=== PATIENT | female | born 1940 | race Caucasian/White ===

== ENCOUNTER 2021-05-11 08:18 | Outpatient (REF) | payer MEDICARE, SELFPAY ==
--- NOTE | ~2021-05-11 | MM_ITS ---
EXAMINATION: MM SCREENING DIGITAL BREAST TOMOSYNTHESIS, BILATERAL CLINICAL INFORMATION: Screening. Asymptomatic. The lifetime risk of breast cancer based on the Tyrer-Cuzick Model is 1%. COMPARISON: Mammography: 10/23/2019, 08/25/2018, 08/08/2017 TECHNIQUE: Digital breast tomosynthesis is performed in both the craniocaudal and mediolateral oblique views along with computer-aided detection (CAD). Synthesized 2D images are generated from the tomosynthesis. FINDINGS: There are scattered areas of fibroglandular density (ACR BI-RADS breast composition Category b). There are no significant masses, abnormal calcifications, or other abnormalities. Dermal lesion again noted overlying posterior medial right breast. There are scattered benign round and vascular calcifications again seen. No significant changes. MM/MM tomosynthesis screening BI IMPRESSION: No mammographic evidence of malignancy. ASSESSMENT: BI-RADS 2: Benign RECOMMENDATION: Routine annual mammography screening. This patient's information was entered into a reminder system with a target due date for their next mammogram.
== END 2021-05-11 08:19 | disposition home or self-care (01) ==
LOC: HO.MAMMO 08:18
PROVIDERS: PCP Internal Medicine; Visit Provider Internal Medicine
DX: Z12.31 Encounter for screening mammogram for malignant neoplasm of breast (principal)
CPT/HCPCS: 77063; 77067

== ENCOUNTER 2022-06-11 09:06 | Outpatient (REF) | payer MEDICARE, SELFPAY ==
--- NOTE | ~2022-06-11 | MM_ITS ---
EXAMINATION: MM SCREENING DIGITAL BREAST TOMOSYNTHESIS, BILATERAL CLINICAL INFORMATION: Screening. Asymptomatic. The lifetime risk of breast cancer based on the Tyrer-Cuzick Model is 0.7%. COMPARISON: Mammography: May 11, 2021 and studies dating back to June 26, 2014 TECHNIQUE: Digital breast tomosynthesis is performed in both the craniocaudal and mediolateral oblique views along with computer-aided detection (CAD). Synthesized 2D images are generated from the tomosynthesis. FINDINGS: There are scattered areas of fibroglandular density (ACR BI-RADS breast composition Category b). There are no significant masses, abnormal calcifications, or other abnormalities. MM/MM tomosynthesis screening BI IMPRESSION: No significant changes from prior exam. ASSESSMENT: BI-RADS 1: Negative RECOMMENDATION: Routine annual mammography screening. This patient's information was entered into a reminder system with a target due date for their next mammogram.
== END 2022-06-11 09:07 | disposition home or self-care (01) ==
LOC: HO.MAMMO 09:06
PROVIDERS: Visit Provider Internal Medicine
DX: Z12.31 Encounter for screening mammogram for malignant neoplasm of breast (principal)
CPT/HCPCS: 77063; 77067

== ENCOUNTER 2022-12-16 08:01 | Outpatient (AMB) | payer MEDICARE, SELFPAY ==
[2022-12-16 08:08] VITALS: BP 152/80; PULSE 79; O2SAT 98; BMI 26.3
--- NOTE | 2022-12-16 08:08 | MHC.PC.OV ---
Vital Signs 12/16/22 08:08 12/16/22 08:26 Height 4 ft 10 in Weight 126 lb BMI 26.3 BP 152/80 H 133/80 Blood Pressure Location Lt brachial Lt brachial Position Sitting Sitting Pulse 79 Pulse Source Pulse Oximeter Pulse Oximetry (%) 98 Oxygen Delivery Method Room Air Intake Visit Reasons: bp Fine Wire Drawer Required: No Accompanied by: Self / Same As Patient Allergies pravastatin Adverse Reaction (Intermediate, Verified 12/16/22 08:16) ineffective Medication List - Last Reconciled 12/16/22 by Mansi Luis MD aspirin 81 mg PO DAILY atorvastatin 20 mg PO DAILY 90 days lisinopril 20 mg PO DAILY 90 days multivitamin 1 tab PO DAILY Tobacco use date assessed: 08/16/22 Fall risk assessment: No Falls in past year Last assessed Fall Risk: 12/16/22 Dental Screening Dental Screen Date: 12/16/22 Did you have a dental visit in the last 12 months?: No Did you have a dental problem in the last 6 months where you did not have access to dental care?: No Was dental information given to patient?: No HPI HPI Comments History of Present Illness Details This is an 82-year-old female with hypertension and pure hypercholesterolemia that comes for follow-up on her blood pressure and lipids. Blood pressure at home is less than 140/90. Last labs were discussed and cholesterol is well control. Will have bone density ordered. No chest pain or shortness of breath. FORMERLY [facility], [facility]–1983 Medical History Essential hypertension Overweight (BMI 25.0-29.9) Pure hypercholesterolemia URI (upper respiratory infection) Surgical History History of colonoscopy No pertinent past surgical history Family History Father Hypertension Mother Hypertension CHF (congestive heart failure) Stroke Brother COPD (chronic obstructive pulmonary disease) Sister Aneurysm Social History Housing: House Alcohol intake: never Patient Tobacco Use Status: Former Tobacco user Tobacco use type: Cigarette e-Cigarette/Vaping Use: Never Used Second Hand Smoke Exposure: No service: No Current occupational status: disabled Cognitive needs: No Hearing needs: No Vision needs: No Questionnaire PHQ-9 Over the last 2 weeks, how often have you been bothered by any of the following problems? 1. Little interest or pleasure in doing things: not at all 2. Feeling down, depressed, or hopeless: not at all 3. Trouble falling or staying asleep, or sleeping too much: not at all 4. Feeling tired or having little energy: not at all 5. Poor appetite or overeating: not at all 6. Feeling bad about yourself - or that you are a failure or have let yourself or your family down: not at all 7. Trouble concentrating on things, such as reading the newspaper or watching television: not at all 8. Moving or speaking so slowly that other people could have noticed. Or the opposite - being so fidgety or restless that you have been moving around a lot more than usual: not at all 9. Thoughts that you would be better off or of hurting yourself in some way: not at all Total score: 0 Depression Screening Interpretation: Negative 61702 - PHQ-9 Billing: Yes Source: Developed by Drs. Angel Almodovar, Veronica Severino, Melvin Trevino and colleagues, with an educational janusz from [employer]. Thrive Questionnaire Date Thrive assessed: 08/16/22 AUDIT C Alcohol Use Questionnaire (AUDIT-C) 1. How often do you have a drink containing alcohol?: Never Total Score: 0 ANNEL-7 AMB Questionnaire ANNEL-7 Date ANNEL - 7 assessed: 08/16/22 Source: Developed by Drs. Angel Almodovar, Veronica Severino, Melvin Trevino and colleagues, with an educational janusz from [employer]. Review of Systems Const All systems reviewed & are unremarkable except as noted in HPI and below Eyes Reports no additional complaints, Denies change in vision and Denies other visual disturbances Card Denies chest pain at rest, Denies chest pain with activity, Denies edema, Denies irregular heart rhythm, Denies claudication, Denies dyspnea, Denies dyspnea on exertion, Denies orthopnea, Denies paroxysmal nocturnal dyspnea and Denies slow heart rate Resp Denies cough, Denies dyspnea and Denies dyspnea on exertion GI Denies abdominal pain, Denies change in bowel habits, Denies excessive flatus, Denies nausea and Denies vomiting Denies urinary incontinence, Denies urinary hesitancy and Denies urinary urgency Musc Denies abnormal gait, Denies atrophy, Denies deformity and Denies limited range of motion Skin/Breast Denies bleeding lesions, Denies changing lesions and Denies rash Neuro Denies abnormal gait and Denies lack of coordination Physical exam (Primary Care) Vital Signs: Last Vital Signs Pulse 79 12/16/22 08:08 BP 152/80 H 12/16/22 08:08 Pulse Ox 98 12/16/22 08:08 Oxygen Delivery Method Room Air 12/16/22 08:08 BMI result Body Mass Index 26.3 Tobacco/Smoking Status: Tobacco use Status Tobacco use date assessed 08/16/22 12/16/22 08:13 Patient Tobacco Use Status Former Tobacco user 12/16/22 08:13 Tobacco use type Cigarette 12/16/22 08:13 e-Cigarette/Vaping Use Never Used 12/16/22 08:13 PHQ-9: PHQ-9 Score PHQ-9: Total score 0 12/16/22 08:13 Depression Screening Interpretation: Negative Thrive Assessment: Date of Thrive Assessment Date Thrive assessed 08/16/22 12/16/22 08:13 Eyes General: appearance normal, both eyes and all related structures Eyelids: Yes eyelids normal Conjunctivae: conjunctivae normal Neck Neck: Yes normal visual inspection and Yes supple Resp Effort & Inspection: normal respiratory effort Auscultation: clear to auscultation bilaterally Cardio Jugular venous distension: no JVD Rate: regular rate Rhythm: regular rhythm Heart sounds: S1 normal heart sound present and S2 normal heart sound present Extrem General: Yes full ROM Assessment and Plan Assessment & Plan (1) Essential hypertension: Code(s): I10 - Essential (primary) hypertension Plan: Continue lisinopril. Blood pressure goal is equal or less than 130/80. (2) Pure hypercholesterolemia: Code(s): E78.00 - Pure hypercholesterolemia, unspecified Plan: Continue statins Orders: Orders XR DEXA axial skeleton Today N95.9 - Unspecified menopausal and perimenopausal disorder Coding Level of Care Code Est Pt Level 3 (96402) Diagnoses Essential hypertension I10 Pure hypercholesterolemia E78.00 Time Spent (min) 16
[2022-12-16 08:26] VITALS: BP 133/80
== END 2022-12-16 08:24 | disposition home or self-care (01) ==
PROVIDERS: Visit Provider Internal Medicine
DX: I10 Essential (primary) hypertension (principal); E78.00 Pure hypercholesterolemia, unspecified
CPT/HCPCS: 99213

== ENCOUNTER 2023-06-23 08:08 | Outpatient (AMB) | payer MEDICARE, SELFPAY ==
[2023-06-23 08:16] VITALS: BP 136/64; BMI 24.5
--- NOTE | 2023-06-23 08:16 | A.OFFPC_ITS ---
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 Accompanied by: Self / Same As Patient Allergies pravastatin Adverse Reaction (Intermediate, Verified 06/23/23 08:24) ineffective Medication List - Last Reconciled 06/23/23 by Mansi Luis MD aspirin 81 mg PO DAILY atorvastatin 20 mg PO DAILY 90 days lisinopril 20 mg PO DAILY 90 days multivitamin 1 tab PO DAILY Tobacco use date assessed: 06/23/23 Fall risk assessment: No Falls in past year Last assessed Fall Risk: 06/23/23 Dental Screening Dental Screen Date: 06/23/23 Did you have a dental visit in the last 12 months?: No Did you have a dental problem in the last 6 months where you did not have access to dental care?: No Was dental information given to patient?: Patient has dentist HPI HPI Comments History of Present Illness Details This is an 82-year-old female with hypertension and pure hypercholesterolemia that comes today for follow-up on blood pressure. Blood pressure has been within goal. Last cholesterol was well controlled with statins and reports no side effects. Has a systolic murmur but denies any chest pain, shortness on breath or leg swelling. Has not gain 5 lb in a week. Will order echocardiogram and labs for the next office visit. [facility] Medical History (Updated 06/23/23 @ 09:14 by Mansi Luis MD) Overweight (BMI 25.0-29.9) URI (upper respiratory infection) Pure hypercholesterolemia Essential hypertension Surgical History History of colonoscopy No pertinent past surgical history Family History Father Hypertension Mother Hypertension CHF (congestive heart failure) Stroke Brother COPD (chronic obstructive pulmonary disease) Sister Aneurysm Social History Housing: House Alcohol intake: never Patient Tobacco Use Status: Former Tobacco user Tobacco use type: Cigarette e-Cigarette/Vaping Use: Never Used Second Hand Smoke Exposure: No service: No Current occupational status: disabled Cognitive needs: No Hearing needs: No Vision needs: No Questionnaire PHQ-9 Over the last 2 weeks, how often have you been bothered by any of the following problems? 1. Little interest or pleasure in doing things: not at all 2. Feeling down, depressed, or hopeless: not at all 3. Trouble falling or staying asleep, or sleeping too much: not at all 4. Feeling tired or having little energy: not at all 5. Poor appetite or overeating: not at all 6. Feeling bad about yourself - or that you are a failure or have let yourself or your family down: not at all 7. Trouble concentrating on things, such as reading the newspaper or watching television: not at all 8. Moving or speaking so slowly that other people could have noticed. Or the opposite - being so fidgety or restless that you have been moving around a lot more than usual: not at all 9. Thoughts that you would be better off or of hurting yourself in some way: not at all Total score: 0 Depression Screening Interpretation: Negative Depression Screening Done: Yes 89636 - PHQ-9 Billing: Yes Source: Developed by Drs. Angel Almodovar, Veronica Severino, Melvin Trevino and colleagues, with an educational janusz from [employer]. Thrive Questionnaire Date Thrive assessed: 06/23/23 I am a: Patient What is your living situation today?: I have a steady place to live Within the past 12 months, did the food you bought not last and you didn't have the money to get more?: Never true Within the past 12 months, did you worry whether your food would run out before you got money to buy more?: Never true Do you have trouble paying for medicines?: No Do you have trouble getting transportation to medical appointments?: No Do you have trouble paying your heating and electricity bill?: No Do you have trouble taking care of your child, family member or friend?: No Do you have trouble with day-to-day activities such as bathing, preparing meals, shopping, managing finances, etc.?: No Are you currently unemployed and looking for a job?: No Are you interested in more education?: No Please select the resources that you would like help with: None Currently or been in a relationship where the following occur: no concerns reported THRIVE Score: 0 AUDIT C Alcohol Use Questionnaire (AUDIT-C) 1. How often do you have a drink containing alcohol?: Never Total Score: 0 ANNEL-7 AMB Questionnaire ANNEL-7 Date ANNEL - 7 assessed: 06/23/23 Feeling nervous, anxious, or on edge: 0 = Not at all Not being able to stop or control worryin = Not at all Worrying too much about different things: 0 = Not at all Trouble relaxin = Not at all Being so restless that it is hard to sit still: 0 = Not at all Becoming easily annoyed or irritable: 0 = Not at all Feeling afraid as if something awful might happen: 0 = Not at all Total ANNEL-7 score (0-4 normal; 5-9 mild; 10-14 moderate; 15-21 severe): 0 Source: Developed by Drs. Angel Almodovar, Veronica Severino, Melvni Trevino and colleagues, with an educational janusz from [employer]. ANNEL-7 Assessment Billing ANNEL-7 Assessment Tool: ANNEL-7 Assessment 43518 Review of Systems Const All systems reviewed & are unremarkable except as noted in HPI and below Eyes Reports no additional complaints, Denies change in vision and Denies other visual disturbances Card Denies chest pain at rest, Denies chest pain with activity, Denies edema, Denies irregular heart rhythm, Denies claudication, Denies dyspnea, Denies dyspnea on exertion, Denies orthopnea, Denies paroxysmal nocturnal dyspnea and Denies slow heart rate Resp Denies cough, Denies dyspnea and Denies dyspnea on exertion GI Denies abdominal pain, Denies change in bowel habits, Denies excessive flatus, Denies nausea and Denies vomiting Denies urinary incontinence, Denies urinary hesitancy and Denies urinary urgency Musc Denies abnormal gait, Denies atrophy, Denies deformity and Denies limited range of motion Skin/Breast Denies bleeding lesions, Denies changing lesions and Denies rash Neuro Denies abnormal gait, Denies behavioral changes and Denies lack of coordination Psych Denies behavioral changes Physical exam (Primary Care) Vital Signs: Last Vital Signs BP 136/64 06/23/23 08:16 BMI result Body Mass Index 24.5 Tobacco/Smoking Status: Tobacco use Status Tobacco use date assessed 06/23/23 06/23/23 08:23 Patient Tobacco Use Status Former Tobacco user 06/23/23 08:23 Tobacco use type Cigarette 06/23/23 08:23 e-Cigarette/Vaping Use Never Used 06/23/23 08:23 PHQ-9: PHQ-9 Score PHQ-9: Total score 0 06/23/23 08:28 Depression Screening Interpretation: Negative Thrive Assessment: Date of Thrive Assessment Date Thrive assessed 06/23/23 06/23/23 08:23 Currently or been in a relationship where the following occur: no concerns reported Eyes General: appearance normal, both eyes and all related structures Eyelids: Yes eyelids normal Conjunctivae: conjunctivae normal Neck Neck: Yes normal visual inspection and Yes supple Resp Effort & Inspection: normal respiratory effort Auscultation: clear to auscultation bilaterally Cardio Jugular venous distension: no JVD Rate: regular rate Rhythm: regular rhythm Heart sounds: Murmur heart sound present Extrem General: Yes full ROM Assessment and Plan Assessment & Plan (1) Essential hypertension: Code(s): I10 - Essential (primary) hypertension Plan: Continue lisinopril. Blood pressure goal is equal or less than 130/80. (2) Pure hypercholesterolemia: Code(s): E78.00 - Pure hypercholesterolemia, unspecified Plan: Continue statins. (3) Systolic murmur: Code(s): R01.1 - Cardiac murmur, unspecified Plan: Echocardiogram ordered. Orders: Orders XR DEXA axial skeleton Today N95.9 - Unspecified menopausal and perimenopausal disorder CA echo transthoracic complete Today R01.1 - Cardiac murmur, unspecified Lipid Panel 6 Months E78.5 - Hyperlipidemia, unspecified Comprehensive [place]. Panel Fast 6 Months I10 - Essential (primary) hypertension Coding Level of Care Code Est Pt Level 3 (93082) Diagnoses Essential hypertension I10 Pure hypercholesterolemia E78.00 Systolic murmur R01.1 Additional Codes ANNEL-7 Assessment Billing - ANNEL-7 Assessment Tool: ANNEL-7 Assessment 71810 ([id number]) Time Spent (min) 19
== END 2023-06-23 08:37 | disposition home or self-care (01) ==
PROVIDERS: PCP Internal Medicine; Visit Provider Internal Medicine
DX: I10 Essential (primary) hypertension (principal); E78.00 Pure hypercholesterolemia, unspecified; R01.1 Cardiac murmur, unspecified
CPT/HCPCS: 99213

== ENCOUNTER 2023-07-14 09:45 | Outpatient (REF) | payer MEDICARE, SELFPAY ==
--- NOTE | ~2023-07-14 | MM_ITS ---
EXAMINATION: BONE DENSITOMETRY CLINICAL INDICATION: Unspecified menopausal and perimenopausal disorder. COMPARISON: Previous BD dated 02/01/2019 and baseline BD dated 04/25/2006. TECHNIQUE: Using a [employer] Sport DXA System (software version: 13.1) manufactured by [employer], dual-energy x-ray absorptiometry was performed of the lumbar spine and left hip. The images are of good technical quality. Summary results are attached. FINDINGS: LEFT FEMUR, NECK: Current: BMD 0.767 g/cm2, Z-score 0.7, T-score -1.9, osteopenia. Prior: BMD 0.833 g/cm2. Baseline: BMD 0.908 g/cm2. LEFT FEMUR, TOTAL: Current: BMD 0.796 g/cm2, Z-score 0.9, T-score -1.7, osteopenia, 12.4% decrease from previous, 18.4% decrease from baseline (<5% change is not significant). Prior: BMD 0.909 g/cm2. Baseline: BMD 0.975 g/cm2. AP SPINE L1-L4: Current: BMD 0.840 g/cm2, Z-score -0.5, T-score -2.8, osteoporosis, 8.2% decrease from previous, 9.4% decrease from baseline (<5% change is not significant). Prior: BMD 0.915 g/cm2. Baseline: BMD 0.927 g/cm2. IDENTIFIED RISK FACTORS: Height loss, osteoporosis, secondary osteoporosis (early menopause). HISTORY OF FRACTURE: None listed. MEDICATIONS: Multivitamin, vitamin D. MM/XR DEXA axial skeleton IMPRESSION: 1. DIAGNOSIS: Osteoporosis based on the lowest T-score value of -2.8 in the lumbar spine applying World Health Organization criteria. 2. 10-YEAR FRACTURE RISK PREDICTION, FRAX: According to the guidelines, FRAX calculation should only be performed on patients in the osteopenia bone density category. Therefore, FRAX was not performed on this patient.? 3. Treatment Recommendations: NOF guidelines recommend consideration for treatment in postmenopausal women and men age 50 and older presenting with the following: -A hip or vertebral (clinical or morphometric) fracture. -T-score less than or equal to -2.5 at the femoral neck or spine after appropriate evaluation to exclude secondary causes. -Low bone mass at the hip or spine and a 10-year fracture probability by FRAX of greater than or equal to 3% for hip fracture or greater than or equal to 20% for major osteoporotic fracture based on the [place] adapted WHO algorithm. 4. Other Recommendations: All treatment decisions require clinical judgment and consideration of individual patient factors, including patient preferences, comorbidities, previous drug use, risk factors not captured in the FRAX model (e.g. frailty, falls, vitamin D deficiency, increased bone turnover, interval significant decline in bone density) and possible under or overestimation of fracture risk by FRAX. Additional medical evaluation for secondary cause of low bone mineral density may be appropriate. FUTURE SCAN RECOMMENDATION: People with diagnosed cases of osteoporosis or at high risk for fracture should have regular bone mineral density tests. For patients eligible for Medicare, routine testing is allowed once every 2 years. The testing frequency can be increased to one year for patients who have rapidly progressing disease, those who are receiving or discontinuing medical therapy to restore bone mass, or have additional risk factors.
== END 2023-07-14 09:46 | disposition home or self-care (01) ==
LOC: HO.MAMMO 09:45
PROVIDERS: PCP Internal Medicine; Visit Provider Internal Medicine
DX: Z13.820 Encounter for screening for osteoporosis (principal); Z78.0 Asymptomatic menopausal state
CPT/HCPCS: 77080

== ENCOUNTER → 2023-07-28 10:53 | Outpatient (REF) | payer MEDICARE, SELFPAY ==
--- NOTE | 2023-07-28 10:56 | CA_ITS ---
Transthoracic Echocardiogram Patient (Last, First, Middle): Rochelle Mann M Gender: Female Date of : 1940 Age: 82 Procedure Date: 07/28/2023 Procedure Type: Transthoracic Echocardiogram Location: OP Height: 147.32 cm Weight: 53.07 kg BSA: 1.45 m2 Heart Rate: bpm BP: 172 / 68 mmHg Forensic Psychiatrist: TO Referring MD: Mansi Luis MD Symptoms: R01.1 - Cardiac murmur, unspecified Study Quality: Fair ECG Rhythm: Sinus Conclusions: - The left ventricular systolic function is normal. The visually estimated ejection fraction is between 60-65%. - There is mild calcification of the aortic valve. - There is mild mitral valve regurgitation. Findings Left Ventricle Normal left ventricular cavity size. The left ventricular systolic function is normal. The visually estimated ejection fraction is between 60-65%. There is no evidence of regional wall motion abnormalities. Diastolic function is normal for age. There is mild septal asymmetric hypertrophy. Right Ventricle Normal right ventricular cavity size and systolic function. Atria Both atria are normal in size. Aortic Valve There is a normal trileaflet aortic valve. There is mild calcification of the aortic valve. There is no aortic valve stenosis. There is no aortic valve regurgitation. Mitral Valve The mitral valve appears normal. There is mild mitral valve regurgitation. There is no mitral valve stenosis. Pulmonic Valve Slightly increased velocity across the pulmonic valve, but doubt any significance. Tricuspid Valve There is trace tricuspid valve regurgitation. There is no evidence of pulmonary hypertension. Great Vessels The asc aorta is normal in size. Small plaque is seen in the sinuses of Valsalva. Venous The inferior vena cava is normal in size and collapses greater than 50% with inspiration. Pericardium/Pleural There is no evidence of pericardial effusion. Prior Study Comparison No significant change compared to prior study dated: 12/14/2017. Measurements 2D Linear Measurements IVSd: 1.01 0.6-0.9/0.6-1.0 cm LVIDd: 3.67 3.9-5.3/4.2-5.9 cm LVIDd Index: 2.53 2.4-3.2/2.2-3.1 cm/m2 LVIDs: 2.11 2.0-3.6 cm LVPWd: 0.83 0.7-1.1 cm LA Diam: 2.70 2.7-3.8/3.0-4.0 cm LAIDs Index: 1.86 1.5-2.3 cm/m2 LV Mass: 122.66 67-162/88-224 g LV Mass Index: 84.59 43-95/49-115 g/m2 LVOT Diam: 1.80 3.0+(-)1.3 cm 2D Systolic Function EF 4C: 68.50 >55% Mitral Valve MV VTI: 0.35 MV Pk [place]: 1.15 MV Mn [place]: 0.69 MV Pk Grad: 5.00 MV Mn Grad: 2.00 MV Pk E: 0.81 MV PK A: 1.14 MV Decel Time: 248.00 E/A: 0.70 E'Lateral: 6.64 E'Medial: 5.77 E/E' Med: 14.00 E/E' Lat: 12.20 PHT: 73.00 MVA PHT: 3.01 MVA Continuity: 2.20 Decel [place]: 3.26 Aortic Valve AoV Pk [place]: 1.61 AoV Mn [place]: 1.10 AoV VTI: 0.36 AoV Pk Grad: 10.00 Aov Mn Grad: 5.00 RAJEEV Cont.VTI: 2.14 LVOT LVOT Pk [place]: 1.26 LVOT Mn [place]: 0.85 LVOT VTI: 0.30 LVOT Pk Grad: 6.00 LVOT Mn Grad: 3.00 LVOT Diam: 1.80 LVOT Area: 2.54 Diastolic Function MV Pk E: 0.81 MV Pk A: 1.14 E/A: 0.70 E'Medial: 5.77 E/E' Med: 14.00 E' Laterial: 6.64 E/E' Lat: 12.20 Right Ventricle TAPSE (mm): 23.40 TVS' [place]: 11.10 Tricuspid Valve TR Pk [place]: 1.68 TR Pk Grad: 11.00 RA Press: 3.00 RVSP: 14.00 Great Vessels Aorta Sinus of Valsalva: 2.76 2.0-3.5 cm Ao Asc: 3.10 2.1-3.4 cm Pulmonary Valve PV Pk [place]: 1.86 PV Min [place]: 1.17 Peak PV Grad: 14.00 PV Mn Grad: 6.00 Shunting QP:QS: 0.70 Updated in Other Vendor System with Status of Final Oscar Ellsworth MD electronically signed on 07/29/2023 4:09:35 PM with status of Final
== END ==
LOC: HO.CARD 10:53
PROVIDERS: PCP Internal Medicine; Visit Provider Internal Medicine
DX: R01.1 Cardiac murmur, unspecified (principal)
CPT/HCPCS: 93306

== ENCOUNTER → 2023-07-28 10:56 | Outpatient (BNV) | payer MEDICARE, SELFPAY | PROVIDERS: PCP Internal Medicine; Visit Provider Internal Medicine | DX: I34.0 Nonrheumatic mitral (valve) insufficiency (principal); I35.8 Other nonrheumatic aortic valve disorders | CPT/HCPCS: 93306 ==

== ENCOUNTER 2024-01-03 08:14 | Outpatient (AMB) | payer MEDICARE, SELFPAY ==
[2024-01-03 08:16] VITALS: BP 140/80; PULSE 64; O2SAT 97; BMI 27.0
--- NOTE | 2024-01-03 08:16 | MHC.PC.OV ---
Vital Signs 01/03/24 08:16 01/03/24 08:48 Height 4 ft 10 in Weight 129 lb 6 oz BMI 27.0 BP 140/80 H 130/70 Blood Pressure Location Lt brachial Lt brachial Position Sitting Sitting Pulse 64 Pulse Source Pulse Oximeter Pulse Oximetry (%) 97 Oxygen Delivery Method Room Air Intake Visit Reasons: bp Car Checker Required: No Accompanied by: Self / Same As Patient Allergies pravastatin Adverse Reaction (Intermediate, Verified 01/03/24 08:29) ineffective Medication List - Last Reconciled 01/03/24 by Mansi Luis MD aspirin 81 mg PO DAILY atorvastatin 20 mg PO DAILY 90 days lisinopril 20 mg PO DAILY 90 days multivitamin 1 tab PO DAILY Tobacco use date assessed: 01/03/24 Fall risk assessment: No Falls in past year Last assessed Fall Risk: 01/03/24 Dental Screening Dental Screen Date: 01/03/24 Did you have a dental visit in the last 12 months?: No Did you have a dental problem in the last 6 months where you did not have access to dental care?: No Was dental information given to patient?: No HPI HPI Comments History of Present Illness Details This is an 83-year-old female with hypertension, pure hypercholesterolemia and osteoporosis that comes today for follow-up on her conditions. Blood pressure stable. Cholesterol well controlled. Has mild impaired glucose tolerance and was advised to do a low-carbohydrate diet. On alendronate for osteoporosis to complete 5 years which would be 2028. DEXA scan done 2023. Denies any polyuria, polydipsia or unintentional weight loss. Compliant with medications. FORMERLY [facility] Medical History (Updated 01/03/24 @ 09:27 by Mansi Luis MD) Overweight (BMI 25.0-29.9) URI (upper respiratory infection) Pure hypercholesterolemia Essential hypertension Surgical History History of colonoscopy No pertinent past surgical history Family History Father Hypertension Mother Hypertension CHF (congestive heart failure) Stroke Brother COPD (chronic obstructive pulmonary disease) Sister Aneurysm Social History Housing: House Alcohol intake: never Patient Tobacco Use Status: Former Tobacco user Tobacco use type: Cigarette e-Cigarette/Vaping Use: Never Used Second Hand Smoke Exposure: No service: No Current occupational status: disabled Cognitive needs: No Hearing needs: No Vision needs: No Questionnaire PHQ-9 Over the last 2 weeks, how often have you been bothered by any of the following problems? 1. Little interest or pleasure in doing things: not at all 2. Feeling down, depressed, or hopeless: not at all 3. Trouble falling or staying asleep, or sleeping too much: not at all 4. Feeling tired or having little energy: not at all 5. Poor appetite or overeating: not at all 6. Feeling bad about yourself - or that you are a failure or have let yourself or your family down: not at all 7. Trouble concentrating on things, such as reading the newspaper or watching television: not at all 8. Moving or speaking so slowly that other people could have noticed. Or the opposite - being so fidgety or restless that you have been moving around a lot more than usual: not at all 9. Thoughts that you would be better off or of hurting yourself in some way: not at all Total score: 0 Depression Screening Interpretation: Negative Depression Screening Done: Yes 00861 - PHQ-9 Billing: Yes Source: Developed by Drs. Angel Almodovar, Veronica Severino, Melvin Trevino and colleagues, with an educational janusz from [employer]. Thrive Questionnaire Date Thrive assessed: 01/03/24 I am a: Patient What is your living situation today?: I have a steady place to live Within the past 12 months, did the food you bought not last and you didn't have the money to get more?: Never true Within the past 12 months, did you worry whether your food would run out before you got money to buy more?: Never true Do you have trouble paying for medicines?: No Do you have trouble getting transportation to medical appointments?: No Do you have trouble paying your heating and electricity bill?: No Do you have trouble taking care of your child, family member or friend?: No Do you have trouble with day-to-day activities such as bathing, preparing meals, shopping, managing finances, etc.?: No Are you currently unemployed and looking for a job?: No Are you interested in more education?: No Please select the resources that you would like help with: None Currently or been in a relationship where the following occur: No concerns reported THRIVE Score: 0 AUDIT C Alcohol Use Questionnaire (AUDIT-C) 1. How often do you have a drink containing alcohol?: Never Total Score: 0 Score Reviewed/Action Taken: No ANNEL-7 AMB Questionnaire ANNEL-7 Date ANNEL - 7 assessed: 01/03/24 Feeling nervous, anxious, or on edge: 0 = Not at all Not being able to stop or control worryin = Not at all Worrying too much about different things: 0 = Not at all Trouble relaxin = Not at all Being so restless that it is hard to sit still: 0 = Not at all Becoming easily annoyed or irritable: 0 = Not at all Feeling afraid as if something awful might happen: 0 = Not at all Total ANNEL-7 score (0-4 normal; 5-9 mild; 10-14 moderate; 15-21 severe): 0 Source: Developed by Drs. Angel Almodovar, Veronica Severino, Melvin Trevino and colleagues, with an educational janusz from [employer]. ANNEL-7 Assessment Billing ANNEL-7 Assessment Tool: ANNEL-7 Assessment 73393 Review of Systems Const All systems reviewed & are unremarkable except as noted in HPI and below Card Denies chest pain at rest, Denies chest pain with activity, Denies edema, Denies irregular heart rhythm, Denies claudication, Denies dyspnea, Denies dyspnea on exertion, Denies orthopnea, Denies paroxysmal nocturnal dyspnea and Denies slow heart rate Resp Denies cough, Denies dyspnea and Denies dyspnea on exertion Skin/Breast Denies bleeding lesions, Denies changing lesions and Denies rash Neuro Denies behavioral changes and Denies lack of coordination Psych Denies behavioral changes Physical exam (Primary Care) Vital Signs: Last Vital Signs Pulse 64 01/03/24 08:16 BP 130/70 01/03/24 08:48 Pulse Ox 97 01/03/24 08:16 Oxygen Delivery Method Room Air 01/03/24 08:16 BMI result Body Mass Index 27.0 Tobacco/Smoking Status: Tobacco use Status Tobacco use date assessed 01/03/24 01/03/24 08:24 Patient Tobacco Use Status Former Tobacco user 01/03/24 08:24 Tobacco use type Cigarette 01/03/24 08:24 e-Cigarette/Vaping Use Never Used 01/03/24 08:24 PHQ-9: PHQ-9 Score PHQ-9: Total score 0 01/03/24 08:48 Depression Screening Interpretation: Negative Thrive Assessment: Date of Thrive Assessment Date Thrive assessed 01/03/24 01/03/24 08:24 Currently or been in a relationship where the following occur: No concerns reported Resp Effort & Inspection: normal respiratory effort Auscultation: clear to auscultation bilaterally Cardio Jugular venous distension: no JVD Rate: regular rate Rhythm: regular rhythm Heart sounds: S1 normal heart sound present and S2 normal heart sound present Neuro General: no focal motor deficits Extrem General: Yes full ROM Psych Appearance: grossly normal Assessment and Plan Assessment & Plan (1) Essential hypertension: Code(s): I10 - Essential (primary) hypertension Plan: Continue lisinopril. Blood pressure goal is equal or less than 130/80. (2) Pure hypercholesterolemia: Code(s): E78.00 - Pure hypercholesterolemia, unspecified Plan: Continue statins and try to do a low-cholesterol diet. Repeat lipid panel in 6 months. (3) Age-related osteoporosis without current pathological fracture: Code(s): M81.0 - Age-related osteoporosis without current pathological fracture Plan: Continue alendronate to complete 5 years in 2028. Repeat DEXA scan 2025. (4) Impaired glucose tolerance: Code(s): R73.02 - Impaired glucose tolerance (oral) Plan: Repeat fasting blood glucose in 6 months. Advised to follow a low-carbohydrate diet. Advised to exercise as tolerated. Orders: Orders Comprehensive [place]. Panel Fast 6 Months I10 - Essential (primary) hypertension Lipid Panel 6 Months E78.5 - Hyperlipidemia, unspecified, I10 - Essential (primary) hypertension Coding Level of Care Code Est Pt Level 4 (07626) Complex EM visit Add On G2211 Diagnoses Essential hypertension I10 Pure hypercholesterolemia E78.00 Age-related osteoporosis without current pathological fracture M81.0 Impaired glucose tolerance R73.02 Additional Codes ANNEL-7 Assessment Billing - ANNEL-7 Assessment Tool: ANNEL-7 Assessment 12435 ([id number]) Time Spent (min) 20
[2024-01-03 08:48] VITALS: BP 130/70
== END 2024-01-03 08:38 | disposition home or self-care (01) ==
PROVIDERS: PCP Internal Medicine; Visit Provider Internal Medicine
DX: I10 Essential (primary) hypertension (principal); E78.00 Pure hypercholesterolemia, unspecified; M81.0 Age-related osteoporosis without current pathological fracture; R73.02 Impaired glucose tolerance (oral)
CPT/HCPCS: 99214; G2211

== ENCOUNTER 2024-06-28 08:08 | Outpatient (AMB) | payer MEDICARE, SELFPAY ==
--- NOTE | 2024-06-28 08:10 | A.OFFPC_ITS ---
Vital Signs 06/28/24 08:13 Height 4 ft 10 in Weight 131 lb 6 oz BMI 27.5 BP 140/90 H Blood Pressure Location Lt brachial Position Sitting Pulse 73 Pulse Source Pulse Oximeter Temp 97.3 F Temp Source Temporal Artery Scan Pulse Oximetry (%) 99 Oxygen Delivery Method Room Air Intake Visit Reasons: BP Check Intake Note: Patient is here to follow up on BP check. Tire Bagger Required: No Drop Board Man: Not Required per policy Accompanied by: Self / Same As Patient Allergies pravastatin Adverse Reaction (Intermediate, Verified 06/28/24 08:23) ineffective Medication List - Last Reconciled 06/28/24 by Mansi Luis MD aspirin 81 mg PO DAILY atorvastatin 20 mg PO DAILY 90 days lisinopril 20 mg PO DAILY 90 days multivitamin 1 tab PO DAILY Tobacco use date assessed: 06/28/24 Fall risk assessment: No Falls in past year Last assessed Fall Risk: 06/28/24 Dental Screening Dental Screen Date: 06/28/24 Did you have a dental visit in the last 12 months?: No Did you have a dental problem in the last 6 months where you did not have access to dental care?: No Was dental information given to patient?: No HPI HPI Comments History of Present Illness Details The patient is an 83-year-old female presenting with follow-up concerns for essential hypertension, hyperlipidemia, and prediabetes, along with symptoms following a recent viral infection and ear infection. Her blood pressure was recorded at home as typically being well-controlled, with ranges from 129/75 to 130/76, although there were instances where it pilar to borderline levels of 140/73 and 140/77. Recent lab work indicated glucose levels at 116, indicative of prediabetes. Hyperlipidemia is well-controlled, and the patient is allergic to pravastatin. She experienced an upper respiratory viral infection and accompanying acute otitis media, for which she completed a 10-day course of amoxicillin starting June 09 and finishing June 18. Although there was substantial improvement, she continues to perceive muffled ears and occasional sore throat. Additionally, she reports symptoms of osteoporosis but declines treatment. Past medical history is significant for former tobacco use but no alcohol consumption, and she regularly takes baby aspirin, atorvastatin, lisinopril, multivitamins, and vitamin D3. [facility]LY [facility] Medical History Overweight (BMI 25.0-29.9) URI (upper respiratory infection) Pure hypercholesterolemia Essential hypertension Surgical History History of colonoscopy No pertinent past surgical history Family History Father Hypertension Mother Hypertension CHF (congestive heart failure) Stroke Brother COPD (chronic obstructive pulmonary disease) Sister Aneurysm Social History Housing: House Alcohol intake: never Patient Tobacco Use Status: Former Tobacco user Tobacco use type: Cigarette e-Cigarette/Vaping Use: Never Used Second Hand Smoke Exposure: Yes service: No Current occupational status: disabled Cognitive needs: No Hearing needs: No Vision needs: No Questionnaire PHQ-9 Over the last 2 weeks, how often have you been bothered by any of the following problems? 1. Little interest or pleasure in doing things: not at all 2. Feeling down, depressed, or hopeless: not at all 3. Trouble falling or staying asleep, or sleeping too much: not at all 4. Feeling tired or having little energy: not at all 5. Poor appetite or overeating: not at all 6. Feeling bad about yourself - or that you are a failure or have let yourself or your family down: not at all 7. Trouble concentrating on things, such as reading the newspaper or watching television: not at all 8. Moving or speaking so slowly that other people could have noticed. Or the opposite - being so fidgety or restless that you have been moving around a lot more than usual: not at all 9. Thoughts that you would be better off or of hurting yourself in some way: not at all Total score: 0 Depression Screening Interpretation: Negative Depression Screening Done: Yes [id number] - PHQ-9 Billing: Yes Source: Developed by Drs. Angel Almodovar, Veronica Severino, Melvin Trevino and colleagues, with an educational janusz from [employer]. Thrive Questionnaire Date Thrive assessed: 06/28/24 I am a: Patient What is your living situation today?: I have a steady place to live Within the past 12 months, did the food you bought not last and you didn't have the money to get more?: Never true Within the past 12 months, did you worry whether your food would run out before you got money to buy more?: Never true Do you have trouble paying for medicines?: No Do you have trouble getting transportation to medical appointments?: No Do you have trouble paying your heating and electricity bill?: No Do you have trouble taking care of your child, family member or friend?: No Do you have trouble with day-to-day activities such as bathing, preparing meals, shopping, managing finances, etc.?: No Are you currently unemployed and looking for a job?: No Are you interested in more education?: No Please select the resources that you would like help with: None Currently or been in a relationship where the following occur: No concerns reported THRIVE Score: 0 AUDIT C Alcohol Use Questionnaire (AUDIT-C) 1. How often do you have a drink containing alcohol?: Never Total Score: 0 Score Reviewed/Action Taken: No ANNEL-7 AMB Questionnaire ANNEL-7 Date ANNEL - 7 assessed: 06/28/24 Feeling nervous, anxious, or on edge: 0 = Not at all Not being able to stop or control worryin = Not at all Worrying too much about different things: 0 = Not at all Trouble relaxin = Not at all Being so restless that it is hard to sit still: 0 = Not at all Becoming easily annoyed or irritable: 0 = Not at all Feeling afraid as if something awful might happen: 0 = Not at all Total ANNEL-7 score (0-4 normal; 5-9 mild; 10-14 moderate; 15-21 severe): 0 Source: Developed by Drs. Angel Almodovar, Veronica Severino, Melvin Trevino and colleagues, with an educational janusz from [employer]. ANNEL-7 Assessment Billing ANNEL-7 Assessment Tool: ANNEL-7 Assessment 56360 Review of Systems Const All systems reviewed & are unremarkable except as noted in HPI and below Card Denies chest pain at rest, Denies chest pain with activity, Denies edema, Denies irregular heart rhythm, Denies claudication, Denies dyspnea, Denies dyspnea on exertion, Denies orthopnea, Denies paroxysmal nocturnal dyspnea and Denies slow heart rate Resp Denies cough, Denies dyspnea and Denies dyspnea on exertion GI Denies abdominal pain, Denies change in bowel habits, Denies excessive flatus, Denies nausea and Denies vomiting Denies urinary incontinence, Denies urinary hesitancy and Denies urinary urgency Musc Denies abnormal gait, Denies atrophy, Denies deformity and Denies limited range of motion Skin/Breast Denies bleeding lesions, Denies changing lesions and Denies rash Neuro Denies abnormal gait, Denies behavioral changes, Denies confusion and Denies lack of coordination Psych Denies behavioral changes and Denies confusion Physical exam (Primary Care) Vital Signs: Last Vital Signs Temp 97.3 F 06/28/24 08:13 Pulse 73 06/28/24 08:13 BP 140/90 H 06/28/24 08:13 Pulse Ox 99 06/28/24 08:13 Oxygen Delivery Method Room Air 06/28/24 08:13 BMI result Body Mass Index 27.5 Tobacco/Smoking Status: Tobacco use Status Tobacco use date assessed 06/28/24 06/28/24 08:18 Patient Tobacco Use Status Former Tobacco user 06/28/24 08:18 Tobacco use type Cigarette 06/28/24 08:18 e-Cigarette/Vaping Use Never Used 06/28/24 08:18 PHQ-9: PHQ-9 Score PHQ-9: Total score 0 06/28/24 08:28 Depression Screening Interpretation: Negative Thrive Assessment: Date of Thrive Assessment Date Thrive assessed 06/28/24 06/28/24 08:18 Currently or been in a relationship where the following occur: No concerns reported Const General: No confusion Orientation/consciousness: patient oriented x3 and No confusion Resp Effort & Inspection: normal respiratory effort Auscultation: clear to auscultation bilaterally Cardio Jugular venous distension: no JVD Rate: regular rate Rhythm: regular rhythm Heart sounds: S1 normal heart sound present and S2 normal heart sound present Neuro General: patient oriented x3, no focal motor deficits and No confusion Extrem General: Yes full ROM Psych Appearance: grossly normal Coding Level of Care Code Est Pt Level 4 (17925) Complex EM visit Add On G2211 Diagnoses Essential hypertension I10 Pure hypercholesterolemia E78.00 Impaired glucose tolerance R73.02 Age-related osteoporosis without current pathological fracture M81.0 Additional Codes ANNEL-7 Assessment Billing - ANNEL-7 Assessment Tool: ANNEL-7 Assessment 12021 ([id number]) PHQ-9 - 36734 - PHQ-9 Billing: Yes ([id number]) Time Spent (min) 24 Assessment & Plan Assessment & Plan (1) Essential hypertension: Code(s): I10 - Essential (primary) hypertension Category: Medical (2) Pure hypercholesterolemia: Code(s): E78.00 - Pure hypercholesterolemia, unspecified Category: Medical (3) Impaired glucose tolerance: Code(s): R73.02 - Impaired glucose tolerance (oral) Category: Medical (4) Age-related osteoporosis without current pathological fracture: Code(s): M81.0 - Age-related osteoporosis without current pathological fracture Category: Medical Plan - Monitor blood pressure and continue current medication regimen; no changes needed as home readings are controlled. - Repeat glucose monitoring in 6 months to assess progression of prediabetes. - Prescribe medication for congestion-related symptoms post-viral infection for 5-10 days as needed. - Reinforce osteoporosis preventive measures but respect refusal of pharmacological intervention. - Discuss and offer pneumonia vaccine as a preventive measure given patient's age. Patient was informed and verbally consented to the use of an ambient scribe for clinic note documentation during this visit. I discussed the patient's current management plan for hypertension, hyperlipidemia, and prediabetes, affirming that no alterations in medication are presently warranted given stable home blood pressure levels and satisfactory cholesterol results. We reviewed prior glucose readings and plan to reassess in six months to monitor any progress in glycemic control. The patient completed an antibiotic course for acute otitis media, and my examination of the ears showed crusting but no acute signs of infection. I recommended a medication temporarily for post-viral congestion. She was informed of osteoporosis risks and encouraged safety precautions due to icy conditions but wishes to avoid treatment at this time. We talked about and deferred the pneumonia vaccine. I recorded an open discussion of her 's condition in the [facility] and provided support for her circumstances. Orders: Orders Lipid Panel 6 Months E78.5 - Hyperlipidemia, unspecified Comprehensive [place]. Panel Fast 6 Months R73.02 - Impaired glucose tolerance (oral) Vitamin D 25-OH Total 6 Months E55.9 - Vitamin D deficiency, unspecified Patient Instructions: - Continue taking prescribed medications for blood pressure and cholesterol management. - Monitor blood sugar levels as directed. - Use prescribed decongestant as needed for post-viral congestion symptoms. - Practice fall prevention measures, especially during icy conditions. - Consider pneumococcal vaccination when ready. - Schedule follow-up in six months for reassessment. - Follow lifestyle recommendations to mitigate osteoporosis risks, if possible.
[2024-06-28 08:13] VITALS: BP 140/90; PULSE 73; TEMP 36.3; O2SAT 99; BMI 27.5
== END 2024-06-28 08:41 | disposition home or self-care (01) ==
PROVIDERS: PCP Internal Medicine; Visit Provider Internal Medicine
DX: I10 Essential (primary) hypertension (principal); E78.00 Pure hypercholesterolemia, unspecified; R73.02 Impaired glucose tolerance (oral); M81.0 Age-related osteoporosis without current pathological fracture

== ENCOUNTER → 2024-06-28 08:08 | Outpatient (BNVA) | payer MEDICARE, SELFPAY | PROVIDERS: PCP Internal Medicine; Visit Provider Internal Medicine | DX: I10 Essential (primary) hypertension (principal); E78.00 Pure hypercholesterolemia, unspecified; R73.02 Impaired glucose tolerance (oral); M81.0 Age-related osteoporosis without current pathological fracture | CPT/HCPCS: 96127; 99212 ==

== ENCOUNTER 2025-01-02 08:11 | Outpatient (AMB) | payer MEDICARE, SELFPAY ==
[2025-01-02 08:16] VITALS: BP 156/72; PULSE 66; TEMP 36.2; O2SAT 98; BMI 28.0
--- NOTE | 2025-01-02 08:16 | A.OFFPC_ITS ---
Vital Signs 01/02/25 08:16 01/02/25 08:31 Height 4 ft 10 in Weight 134 lb BMI 28.0 BP 156/72 H 129/70 Blood Pressure Location Lt brachial Lt brachial Position Sitting Sitting Pulse 66 67 Pulse Source Pulse Oximeter Monitor Temp 97.1 F Temp Source Temporal Artery Scan Pulse Oximetry (%) 98 Oxygen Delivery Method Room Air Intake Visit Reasons: bp Pathology Tech Required: No Accompanied by: Self / Same As Patient Allergies pravastatin Adverse Reaction (Intermediate, Verified 01/02/25 08:24) ineffective Medication List - Last Reconciled 01/02/25 by Mansi Luis MD aspirin 81 mg PO DAILY atorvastatin 20 mg PO DAILY 90 days guaifenesin ER (Mucinex) 600 mg PO BID 5 days lisinopril 20 mg PO DAILY 90 days multivitamin 1 tab PO DAILY Tobacco use date assessed: 01/02/25 Fall risk assessment: No Falls in past year Last assessed Fall Risk: 01/02/25 Dental Screening Dental Screen Date: 01/02/25 Did you have a dental visit in the last 12 months?: No Did you have a dental problem in the last 6 months where you did not have access to dental care?: No Was dental information given to patient?: Patient declined HPI HPI Comments History of Present Illness Details The patient is an 84-year-old female presenting with follow-up for hypertension and hyperlipidemia management. Labs done but still pending. She also has osteoporosis diagnosed in 2023 and declines treatment. Hypertension has been monitored with recent readings showing 129/70 mmHg, which is within the target range. The patient is currently on lisinopril 20 mg for blood pressure control. Hyperlipidemia is being managed with atorvastatin 20 mg, which has shown effective results in past blood work. The patient has a known allergy to pravastatin, which was previously ineffective. The patient also has impaired glucose tolerance, indicating prediabetes, which is being monitored. [facility] Medical History Overweight (BMI 25.0-29.9) URI (upper respiratory infection) Pure hypercholesterolemia Essential hypertension Surgical History History of colonoscopy No pertinent past surgical history Family History Father Hypertension Mother Hypertension CHF (congestive heart failure) Stroke Brother COPD (chronic obstructive pulmonary disease) Sister Aneurysm Social History Housing: House Alcohol intake: never Patient Tobacco Use Status: Former Tobacco user Tobacco use type: Cigarette e-Cigarette/Vaping Use: Never Used Second Hand Smoke Exposure: Yes service: No Current occupational status: disabled Cognitive needs: No Hearing needs: No Vision needs: No Questionnaire PHQ-9 Over the last 2 weeks, how often have you been bothered by any of the following problems? 1. Little interest or pleasure in doing things: not at all 2. Feeling down, depressed, or hopeless: not at all 3. Trouble falling or staying asleep, or sleeping too much: not at all 4. Feeling tired or having little energy: not at all 5. Poor appetite or overeating: not at all 6. Feeling bad about yourself - or that you are a failure or have let yourself or your family down: not at all 7. Trouble concentrating on things, such as reading the newspaper or watching television: not at all 8. Moving or speaking so slowly that other people could have noticed. Or the opposite - being so fidgety or restless that you have been moving around a lot more than usual: not at all 9. Thoughts that you would be better off or of hurting yourself in some way: not at all Total score: 0 Depression Screening Interpretation: Negative Depression Screening Done: Yes 10531 - PHQ-9 Billing: Yes Source: Developed by Drs. Angel Almodovar, Veronica Severino, Melvin Trevino and colleagues, with an educational janusz from [employer]. Thrive Questionnaire Date Thrive assessed: 06/28/24 I am a: Patient What is your living situation today?: I have a steady place to live Within the past 12 months, did the food you bought not last and you didn't have the money to get more?: Never true Within the past 12 months, did you worry whether your food would run out before you got money to buy more?: Never true Do you have trouble paying for medicines?: No Do you have trouble getting transportation to medical appointments?: No Do you have trouble paying your heating and electricity bill?: No Do you have trouble taking care of your child, family member or friend?: No Do you have trouble with day-to-day activities such as bathing, preparing meals, shopping, managing finances, etc.?: No Are you currently unemployed and looking for a job?: No Are you interested in more education?: No Please select the resources that you would like help with: None Currently or been in a relationship where the following occur: No concerns reported THRIVE Score: 0 AUDIT C Alcohol Use Questionnaire (AUDIT-C) 1. How often do you have a drink containing alcohol?: Never 3. How often do you have six or more drinks on one occasion?: Never Total Score: 0 Score Reviewed/Action Taken: No ANNEL-7 AMB Questionnaire ANNEL-7 Date ANNEL - 7 assessed: 06/28/24 Feeling nervous, anxious, or on edge: 0 = Not at all Not being able to stop or control worryin = Not at all Worrying too much about different things: 0 = Not at all Trouble relaxin = Not at all Being so restless that it is hard to sit still: 0 = Not at all Becoming easily annoyed or irritable: 0 = Not at all Feeling afraid as if something awful might happen: 0 = Not at all Total ANNEL-7 score (0-4 normal; 5-9 mild; 10-14 moderate; 15-21 severe): 0 Source: Developed by Drs. Angel Almodovar, Veronica Severino, Melvin Trevino and colleagues, with an educational janusz from [employer]. ANNEL-7 Assessment Billing ANNEL-7 Assessment Tool: ANNEL-7 Assessment 76021 Review of Systems Const All systems reviewed & are unremarkable except as noted in HPI and below Card Denies chest pain at rest, Denies chest pain with activity, Denies edema, Denies irregular heart rhythm, Denies claudication, Denies dyspnea, Denies dyspnea on exertion, Denies orthopnea, Denies paroxysmal nocturnal dyspnea and Denies slow heart rate Resp Denies cough, Denies dyspnea and Denies dyspnea on exertion GI Denies abdominal pain, Denies change in bowel habits, Denies excessive flatus, Denies nausea and Denies vomiting Denies urinary incontinence, Denies urinary hesitancy and Denies urinary urgency Musc Denies abnormal gait, Denies atrophy, Denies deformity and Denies limited range of motion Skin/Breast Denies bleeding lesions, Denies changing lesions and Denies rash Neuro Denies abnormal gait, Denies behavioral changes and Denies lack of coordination Psych Denies behavioral changes Physical exam (Primary Care) Vital Signs: Last Vital Signs Temp 97.1 F 01/02/25 08:16 Pulse 66 01/02/25 08:16 BP 156/72 H 01/02/25 08:16 Pulse Ox 98 01/02/25 08:16 Oxygen Delivery Method Room Air 01/02/25 08:16 BMI result Body Mass Index 28.0 Tobacco/Smoking Status: Tobacco use Status Tobacco use date assessed 01/02/25 01/02/25 08:19 Patient Tobacco Use Status Former Tobacco user 01/02/25 08:19 Tobacco use type Cigarette 01/02/25 08:19 e-Cigarette/Vaping Use Never Used 01/02/25 08:19 PHQ-9: PHQ-9 Score PHQ-9: Total score 0 01/02/25 08:19 Depression Screening Interpretation: Negative Thrive Assessment: Date of Thrive Assessment Date Thrive assessed 06/28/24 01/02/25 08:19 Currently or been in a relationship where the following occur: No concerns reported Resp Effort & Inspection: normal respiratory effort Auscultation: clear to auscultation bilaterally Cardio Jugular venous distension: no JVD Rate: regular rate Rhythm: regular rhythm Heart sounds: S1 normal heart sound present and S2 normal heart sound present Extrem General: Yes full ROM Coding Level of Care Code Est Pt Level 4 (10397) Complex EM visit Add On G2211 Diagnoses Essential hypertension I10 Pure hypercholesterolemia E78.00 Impaired glucose tolerance R73.02 Age-related osteoporosis without current pathological fracture M81.0 Additional Codes PHQ-9 - 16555 - PHQ-9 Billing: Yes ([id number]) ANNEL-7 Assessment Billing - ANNEL-7 Assessment Tool: ANNEL-7 Assessment 43529 ([id number]) Time Spent (min) 22 Assessment & Plan Assessment & Plan (1) Essential hypertension: Code(s): I10 - Essential (primary) hypertension Category: Medical (2) Pure hypercholesterolemia: Code(s): E78.00 - Pure hypercholesterolemia, unspecified Category: Medical (3) Impaired glucose tolerance: Code(s): R73.02 - Impaired glucose tolerance (oral) Category: Medical (4) Age-related osteoporosis without current pathological fracture: Code(s): M81.0 - Age-related osteoporosis without current pathological fracture Category: Medical Plan Plan Patient was informed and verbally consented to the use of an ambient scribe for clinic note documentation during this visit. 1. Essential (primary) hypertension I10 The patient's blood pressure is well-controlled with lisinopril 20 mg, and recent readings are within the target range. No changes to the current medication regimen are necessary at this time. 2. Hyperlipidemia, unspecified E78.5 The patient is currently taking atorvastatin 20 mg, which has been effective in managing cholesterol levels. The patient has a known allergy to pravastatin, which was previously ineffective. 3. Impaired glucose tolerance (oral) R73.02 The patient has impaired glucose tolerance, indicating prediabetes, which is being monitored. 4. osteoporosis
--- OUTSIDE RECORDS SUMMARY | 2025-01-02 08:30 | XMS_ITS | Patient Health Record ---
Author Organization [facility] Address [address] [place] [id number] Care Team Providers Care Japanese Professor Name Role Phone Mansi Hinojosa Primary Care Provider Deandre Raman Jr Unavailable Reason For Referral No Information Medications Medication SIG (Take, Route, Frequency, Duration) Notes Start Date End Date Status Colyte with Flavor Packs 227.1 GM As directed Orally As directed for 1 day(s) 04/25/2013 05/09/2024 Active Vitamin D-3 2000iu A ctive Atorvastatin Calcium 20mg Active Lisinopril 5mg Activ e Toprol XL 50mg Activ e Aspirin 81mg Active Centrum Silver Activ e Problems Problem Type SNOMED Code ICD Code Onset Dates Problem Status W/U Status Risk Notes Problem Hemorrhoids (17653445) Hemorrhoids (455.6) Active confirmed Problem Constipation (54488805) Constipation (564.00) Active confirmed Problem Rectal bleeding (67807994) Rectal bleeding (569.3) Active confirmed Plan Of Treatment Future Test Test Name Order Date COLONOSCOPY 04/25/2013 Insurance Providers Payer Name Payer Address Payer Phone Subscriber Number Group Number Insured Name Patient Relationship to Insured Coverage Start Date Coverage End Date MEDICARE OF [place] [address] [place] [address] [phone] [id number] SHAWNA HORNE Self - patient is the insured MEDEX ATTN CLAIMS [address] [place] [address] [id number] SHAWNA HORNE Self - patient is the insured Medical (General) History Medical History History ICD Code colonoscopy 03/01/2003 hypertension elevated Cholesterol
--- OUTSIDE RECORDS SUMMARY | 2025-01-02 08:30 | XMS_ITS | Clinical Summary ---
Author Organization [facility] Address [address] [facility] [address] [place] [phone] Phone Care Team Providers Care Correctional Treatment Specialist Name Role Phone Mansi Hinojosa MD Primary Care Provid er Allergies Active Allergy Reactions Criticality Noted Date Comments Lidocaine Dermatitis High 06/08/2024 Medications atorvastatin (LIPITOR) 20 MG tablet Take 20 mg by mouth daily. Active aspirin (ASPIR-81 ORAL) Take by mouth. Active cholecalciferol , vitamin D3, (VITAMIN D3 ORAL) Take by mouth. Activ e lisinopril (PRINIVIL,ZESTR IL) 20 MG tablet 0 Active multivit,iron,m inerals/lutein (CENTRUM SILVER ULTRA WOMEN'S ORAL) Take by mouth. Activ e lisinopril (PRINIVIL,ZESTR IL) 5 MG tablet Lisinopril 5mg Active metoprolol succinate (TOPROL XL) 50 MG 24 hr tablet Toprol XL 50mg Active Active Problems Problem Noted Date Diagnosed Date Hemorrhoids 12/01/2024 Constipation 12/01/2024 Rectal bleeding 12/01/2024 Encounters Date Type Department Care Team Description 12/25/2024 7:39 AM EDT - 12/25/2024 11:59 PM EDT Hospital Encounter [facility] [address] [place], [place] [id number] Mansi Hinojosa MD Discharge Disposition: Home or Self Care 12/25/2024 Transcribe Orders [facility] [address] [place] [address] Mansi Hinojosa MD Vitamin D deficiency, unspecified (Primary Dx); Impaired glucose tolerance; Hyperlipidemia, unspecified hyperlipidemia type 12/01/2024 9:30 AM EDT Office Visit [facility] [address] [address] Robin Deshpande PA-C Allergic rhinitis, unspecified seasonality, unspecified trigger (Primary Dx) from Last 3 Months Immunizations Immunization Administration Dates Next Due COVID-19 (Pre-02/28) Lb Vaccine, rS-Ad26, P F 08/09/2020 Social History Tobacco Use Types Packs/Day Years Used Date Smoking Tobacco: Former Cigarettes Smokeless Tobacco: Never Tobacco Cessation:Counseling Given: Not Answered Alcohol Use Standard Drinks/Week Comments Not Currently 0 (1 standard drink = 0.6 oz pur e alcohol) Education Answer Date Recorded Are you interested in more education? Not on vianey e 09/03/2022 Are you concerned about learning? Not on file 09/03/2022 No 09/03/2022 No 09/03/2022 Digital Access Answer Date Recorded No 2022 No 2022 Reliable internet access at home? Not on file 2022 Device with a working camera? Not on file Comments Unknown Sex and Gender Information Value Date Recorded Sex Assigned at Not on file Legal Sex Female 8:07 AM EDT Gender Identity Not on file Sexual Orientation Not on file Last Filed Vital Signs Vital Sign Reading Time Taken Comments Blood Pressure 149/74 12/01/2024 9:28 AM EDT Pulse 72 12/01/2024 9:20 AM EDT Temperature 36.4 C (97.6 F) 12/01/2024 9:20 AM EDT Respiratory Rate 16 12/01/2024 9:20 AM EDT Oxygen Saturation 97% 12/01/2024 9:20 AM EDT Inhaled Oxygen Concentration - - Weight 58.1 kg (128 lb) 12/01/2024 9:20 AM EDT Height 147.3 cm (4' 10 ) 06/19/2022 2:19 PM EST Body Mass Index 26.75 06/19/2022 2:19 PM EST Plan of Treatment Health Maintenance Due Date Last Done Comments Adult Td,Tdap Booster 1938 DEPRESSION SCREENING 1950 PNEUMOCOCCAL VACCINES (50+ years) (1 of 1 - PCV) 1988 ZOSTER VACCINES (1 of 2) 1988 OSTEOPOROSIS SCREENING INITIAL (ONE-TIME) 10/03/2003 RSV VACCINE (1 - 1-dose 75+ series) 2013 COVID-19 VACCINE (3 - 2023- season) 2024 05/21/2021, 08/09/2020 CREATININE LEVEL 12/25/2025 12/25/2024, 04/2025, 12/23/2023, Additional history exists POTASSIUM LEVEL 12/25/2025 12/25/2024, 06/09, 12/23/2023, Additional history exists HEPATITIS A VACCINES Aged Out No long er eligible based on patient's age to complete this topic HIB VACCINES Aged Out No longer eligi ble based on patient's age to complete this topic MENINGOCOCCAL VACCINES (ACWY) Aged Out No longer eligible based on patient's age to complete this topic MENINGOCOCCAL VACCINES (B) Aged Out N o longer eligible based on patient's age to complete this topic Medical Devices Not on file Procedures Procedure Name Priority Date/Time Associated Diagnosis Comments COMPREHENSIVE METABOLIC PANEL Routine 12/25/2024 7:40 AM EDT Vitamin D deficiency, unspecified Impaired glucose tolerance Hyperlipidemia, unspecified hyperlipidemia type 25-OH VITAMIN D Routine 12/25/2024 7:40 AM EDT Vitamin D deficiency, unspecified Impaired glucose tolerance Hyperlipidemia, unspecified hyperlipidemia type LIPID PANEL Routine 12/25/2024 7:40 AM EDT Vitamin D deficiency, unspecified Impaired glucose tolerance Hyperlipidemia, unspecified hyperlipidemia type POCT COVID-19 RT-PCR/INFLUENZA A & B/RSV CEPHEID Routine 12/01/2024 9:57 AM EDT Allergic rhinitis, unspecified seasonality, unspecified trigger from Last 3 Months Results * (ABNORMAL) Comprehensive metabolic panel (12/25/2024 7:40 AM EDT) SODIUM 141 133 - 146 mmol/L [facility] POTASSIUM 3.9 3.3 - 5.1 mmol/L [facility] CHLORIDE 105 96 - 108 mmol/L [facility] CO2 24 21 - 35 mmol/L [facility] BUN 21(H) 6 - 19 mg/dL [facility] CREATININE 0.70 0.5 - 1.5 mg/dL [facility] GLUCOSE 101(H) 70 - 99 mg/dL [facility] ALBUMIN 4.2 3.9 - 4.8 g/dL [facility] TOTAL PROTEIN 6.8 6.5 - 8.0 g/dL [facility] CALCIUM 10.0 8.4 - 10.3 mg/dL [facility] ALKALINE PHOSPHATASE 42 39 - 117 U/L [facility] TOTAL BILIRUBIN 0.4 0.0 - 1.2 mg/dL [facility] AST 24 0 - 37 U/L [facility] ALT 14 0 - 40 U/L [facility] GLOBULIN 2.6 1 - 4.8 g/dL [facility] EGFR 84 >59 mL/min/1.7 3m2 [facility] Comment:Estimated glomerular filtration rate calculated using the CKD-EPI refit equation. ANION GAP 16 10 - 20 mmol/L [facility] Blood 12/25/2024 7:40 AM EDT 12/25/2024 7:45 AM EDT us Mansi Luis MD LAB BLOOD ORDERABLES Final Result Performing Organization Address City/[facility]/ZIP Co de Phone Number [address] [address] * 25-OH vitamin D (12/25/2024 7:40 AM EDT) 25 OH VIT D (TOTAL) 51 30 - 60 ng/mL [facility] Blood 12/25/2024 7:40 AM EDT 12/25/2024 7:45 AM EDT us Mansi Luis MD LAB BLOOD ORDERABLES Final Result [address] [address] * (ABNORMAL) Lipid panel (12/25/2024 7:40 AM EDT) HDL 78 mg/dL [facility] Comment: Interpretation <40 mg/dL: Low HDL cholesterol (major risk factor for CHD) Greater than or equal to 60 mg/dL: High HDL cholesterol ( negative risk factor for CHD) HDL - cholesterol is affected by a number of factors, e.g. smoking, excerise, hormones, sex and age. CHOLESTEROL 150 0 - 240 mg/dL [facility] TRIGLYCERIDES 53 30 - 160 mg/dL [facility] LDL 61 50 - 129 mg/dL [facility] Comment: LDL levels in terms of risk for coronary heart disease: <100 mg/dL: Optimal 100-129 mg/dL: Near or above optimal 130-159 mg/dL: Borderline high 160-189 mg/dL: High >190 mg/dL: Very High CARDIAC RISK RATIO 1.9(L) 3.3 - 4.4 C [facility] Blood 12/25/2024 7:40 AM EDT 12/25/2024 7:44 AM EDT us Mansi Luis MD LAB BLOOD ORDERABLES Final Result [facility] [address] [place] [address] * POCT COVID-19 RT-PCR/Influenza A & B/RSV (Cepheid) (12/01/2024 9:57 AM EDT) RSV PCR Negative Negative [facility] [place] SARS-CoV-2 (COVID-19) Negative Negative [facility] [place] POC Influenza A PCR Negative Negative [facility] [place] [facility] Influenza B PCR Negative Negative [facility] [place] 12/01/2024 9:57 AM EDT 12/01/2024 10:37 AM EDT us Robin Deshpande PA-C POINT OF CARE TEST ORDER KEN Final Result [facility]NOTE 3[facility] AT [address] [address], [facility] [phone] from Last 3 Months Insurance MEDICARE PART A & B [employer] MEDEX SUPPLEMENT MEDICARE PART A & B [employer] MEDEX SUPPLEMENT MEDICARE PART A & B [employer] MEDEX SUPPLEMENT MEDICARE PART A & B [employer] MEDEX SUPPLEMENT MEDICARE PART A & B [employer] MEDEX SUPPLEMENT MEDICARE PART A & B [employer] MEDEX SUPPLEMENT MEDICARE PART A & B [employer] MEDEX SUPPLEMENT MEDICARE PART A & B [employer] MEDEX SUPPLEMENT MEDICARE PART A & B [employer] MEDEX SUPPLEMENT Care Teams Correctional Treatment Specialist Relationship Specialty Start Date End Date Mansi Hinojosa MD [address] [place] [address] PCP - General Internal Medicine 03/05/19 Additional Source Comments The information contained in this document represents components of the legal health record. It is not the complete legal health record.[facility]
--- OUTSIDE RECORDS SUMMARY | 2025-01-02 08:30 | XMS_ITS | Encounter Summary ---
Author Organization [facility] Address [address] [facility] [address] [place] [phone] Phone Care Team Providers Care Family Specialist Name Role Phone Mansi Hinojosa MD Primary Care Provid er Encounter Details Date Type Department Care Team (Latest Contact Info) Description 05/04/2019 Transcribe Orders [facility] [address] [place] [phone] Mansi Hinojosa MD [address] [place] [phone] Pure hypercholesterolemia (Primary Dx); Avitaminosis D Social History Tobacco Use Types Packs/Day Years Used Date Smoking Tobacco: Never Smokeless Tobacco: Never Comments Unknown Sex and Gender Information Value Date Recorded Sex Assigned at Not on file Legal Sex Female 8:07 AM EDT Gender Identity Not on file Sexual Orientation Not on file documented as of this encounter Plan of Treatment Not on file documented as of this encounter Results * (ABNORMAL) Comprehensive metabolic panel (05/04/2019 7:33 AM EST) SODIUM 141 133 - 146 mmol/L [facility] POTASSIUM 4.5 3.3 - 5.1 mmol/L [facility] CHLORIDE 104 96 - 108 mmol/L [facility] CO2 26 21 - 35 mmol/L [facility] BUN 17 6 - 19 mg/dL [facility] CREATININE 0.70 0.5 - 1.5 mg/dL [facility] GLUCOSE 109(H) 70 - 99 mg/dL [facility] ALBUMIN 4.2 3.9 - 4.8 g/dL [facility] TOTAL PROTEIN 7.3 6.5 - 8.0 g/dL [facility] CALCIUM 10.5(H) 8.4 - 10.3 mg/dL [facility] ALKALINE PHOSPHATASE 42 39 - 117 U/L [facility] TOTAL BILIRUBIN 0.4 0.0 - 1.2 mg/dL [facility] AST 20 0 - 37 U/L [facility] ALT 16 0 - 40 U/L [facility] GLOBULIN 3.1 1 - 4.8 g/dL [facility] EGFR 82 >59 mL/min/1.7 3m2 [facility] Comment:If patient is black, multiply result by 1.159. Estimated glomerular filtration rate calculated using the CKD-EPI equation. ANION GAP 16 10 - 20 mmol/L [facility] Blood 05/04/2019 7:33 AM EST 05/04/2019 7:38 AM EST Mansi Luis MD LAB BLOOD ORDERABLES Final Result Performing Organization Address [facility]/ZIP Co de Phone Number [address] [address] * 25-OH vitamin D (05/04/2019 7:33 AM EST) 25 OH VIT D (TOTAL) 42 30 - 60 ng/mL [facility] Blood 05/04/2019 7:33 AM EST 05/04/2019 7:38 AM EST Mansi Luis MD LAB BLOOD ORDERABLES Final Result Performing Organization Address [facility] Co de Phone Number [address] [phone] * (ABNORMAL) Lipid panel (05/04/2019 7:33 AM EST) HDL 82 mg/dL [facility] Comment: Interpretation <40 mg/dL: Low HDL cholesterol (major risk factor for CHD) Greater than or equal to 60 mg/dL: High HDL cholesterol ( negative risk factor for CHD) HDL - cholesterol is affected by a number of factors, e.g. smoking, excerise, hormones, sex and age. CHOLESTEROL 160 0 - 240 mg/dL [facility] TRIGLYCERIDES 68 30 - 160 mg/dL [facility] LDL 64 50 - 129 mg/dL [facility] Comment: LDL levels in terms of risk for coronary heart disease: <100 mg/dL: Optimal 100-129 mg/dL: Near or above optimal 130-159 mg/dL: Borderline high 160-189 mg/dL: High >190 mg/dL: Very High CARDIAC RISK RATIO 2.0(L) 3.3 - 4.4 [facility] Blood 05/04/2019 7:33 AM EST 05/04/2019 7:38 AM EST Mansi Luis MD LAB BLOOD ORDERABLES Final Result [facility] [address] [place] [address] documented in this encounter Visit Diagnoses Diagnosis Pure hypercholesterolemia- Primary Avitaminosis D Unspecified vitamin D deficiency documented in this encounter Additional Health Concerns Infection Onset Date Last Indicated Resolved Time CoV-Risk 01/03/2022 01/03/2022 01/14/2022 1:23 AM EDT CoV-Risk 06/19/2022 06/19/2022 06/30/2022 1:22 AM EST CoV-Risk 06/08/2024 06/08/2024 06/19/2024 1:23 AM EST documented as of this encounter Care Teams Family Specialist Relationship Specialty Start Date End Date Mansi Hinojosa MD [address] [place] [address] PCP - General Internal Medicine 03/05/19 documented as of this encounter Additional Source Comments The information contained in this document represents components of the legal health record. It is not the complete legal health record.[facility]
--- OUTSIDE RECORDS SUMMARY | 2025-01-02 08:30 | XMS_ITS | Encounter Summary ---
Author Organization [facility] Address [address] [facility] [address] [place] [phone] Phone Care Team Providers Care Product Analyst Name Role Phone Mansi Hinojosa MD Primary Care Provid er Encounter Details Date Type Department Care Team (Latest Contact Info) Description 10/30/2019 Transcribe Orders [facility] [address] [place] [address] [phone] Mansi Hinojosa MD [address] [place] [phone] Essential hypertension, malignant (Primary Dx); Pure hypercholesterolemia ; Avitaminosis D Social History Tobacco Use Types Packs/Day Years Used Date Smoking Tobacco: Never Smokeless Tobacco: Never Alcohol Use Standard Drinks/Week Comments Not Currently 0 (1 standard drink = 0.6 oz pur e alcohol) Comments Unknown Sex and Gender Information Value Date Recorded Sex Assigned at Not on file Legal Sex Female 8:07 AM EDT Gender Identity Not on file Sexual Orientation Not on file documented as of this encounter Plan of Treatment Not on file documented as of this encounter Results * 25-OH vitamin D (10/30/2019 8:09 AM EDT) 25 OH VIT D (TOTAL) 43 30 - 60 ng/mL [facility] Blood 10/30/2019 8:09 AM EDT 10/30/2019 11:29 AM EDT us Mansi Luis MD LAB BLOOD ORDERABLES Final Result [address] [address] * (ABNORMAL) Lipid panel (10/30/2019 8:09 AM EDT) HDL 78 mg/dL [facility] Comment: Interpretation <40 mg/dL: Low HDL cholesterol (major risk factor for CHD) Greater than or equal to 60 mg/dL: High HDL cholesterol ( negative risk factor for CHD) HDL - cholesterol is affected by a number of factors, e.g. smoking, excerise, hormones, sex and age. CHOLESTEROL 166 0 - 240 mg/dL [facility] TRIGLYCERIDES 71 30 - 160 mg/dL [facility] LDL 74 50 - 129 mg/dL [facility] Comment: LDL levels in terms of risk for coronary heart disease: <100 mg/dL: Optimal 100-129 mg/dL: Near or above optimal 130-159 mg/dL: Borderline high 160-189 mg/dL: High >190 mg/dL: Very High CARDIAC RISK RATIO 2.1(L) 3.3 - 4.4 [facility] Blood 10/30/2019 8:09 AM EDT 10/30/2019 11:29 AM EDT Mansi Luis MD LAB BLOOD ORDERABLES Final Result Performing Organization Address [facility] Co de Phone Number [address] [address] * (ABNORMAL) Comprehensive metabolic panel (10/30/2019 8:09 AM EDT) SODIUM 140 133 - 146 mmol/L [facility] POTASSIUM 4.3 3.3 - 5.1 mmol/L [facility] CHLORIDE 102 96 - 108 mmol/L [facility] CO2 26 21 - 35 mmol/L [facility] BUN 14 6 - 19 mg/dL [facility] CREATININE 0.70 0.5 - 1.5 mg/dL [facility] GLUCOSE 117(H) 70 - 99 mg/dL [facility] ALBUMIN 4.4 3.9 - 4.8 g/dL [facility] TOTAL PROTEIN 7.1 6.5 - 8.0 g/dL [facility] CALCIUM 10.1 8.4 - 10.3 mg/dL [facility] ALKALINE PHOSPHATASE 36(L) 39 - 117 U/L [facility] TOTAL BILIRUBIN 0.5 0.0 - 1.2 mg/dL [facility] AST 22 0 - 37 U/L [facility] ALT 15 0 - 40 U/L [facility] GLOBULIN 2.7 1 - 4.8 g/dL [facility] EGFR 81 >59 mL/min/1.7 3m2 [facility] Comment:Estimated glomerular filtration rate calculated using the CKD-EPI equation. ANION GAP 16 10 - 20 mmol/L [facility] Blood 10/30/2019 8:09 AM EDT 10/30/2019 11:29 AM EDT Mansi Luis MD LAB BLOOD ORDERABLES Final Result Performing Organization Address City/State/[facility] Co de Phone Number [address] [phone] documented in this encounter Visit Diagnoses Diagnosis Essential hypertension, malignant- Primary Pure hypercholesterolemia Avitaminosis D Unspecified vitamin D deficiency documented in this encounter Additional Health Concerns Infection Onset Date Last Indicated Resolved Time CoV-Risk 01/03/2022 01/03/2022 01/14/2022 1:23 AM EDT CoV-Risk 06/19/2022 06/19/2022 06/30/2022 1:22 AM EST CoV-Risk 06/08/2024 06/08/2024 06/19/2024 1:23 AM EST documented as of this encounter Care Teams Product Analyst Relationship Specialty Start Date End Date Mansi Hinojosa MD [address] [place] [address] PCP - General Internal Medicine 03/05/19 documented as of this encounter Additional Source Comments The information contained in this document represents components of the legal health record. It is not the complete legal health record.[facility]
[2025-01-02 08:31] VITALS: BP 129/70; PULSE 67
== END 2025-01-02 08:48 | disposition home or self-care (01) ==
LOC: HO.HMCH 08:12
PROVIDERS: PCP Internal Medicine; Visit Provider Internal Medicine
DX: I10 Essential (primary) hypertension (principal); E78.00 Pure hypercholesterolemia, unspecified; R73.02 Impaired glucose tolerance (oral); M81.0 Age-related osteoporosis without current pathological fracture

== ENCOUNTER → 2025-01-02 08:11 | Outpatient (BNVA) | payer MEDICARE, SELFPAY | PROVIDERS: PCP Internal Medicine; Visit Provider Internal Medicine | DX: I10 Essential (primary) hypertension (principal); E78.00 Pure hypercholesterolemia, unspecified; R73.02 Impaired glucose tolerance (oral); M81.0 Age-related osteoporosis without current pathological fracture | CPT/HCPCS: 96127; 99212 ==